=== PATIENT | male | born 1980 | race Caucasian/White ===

== ENCOUNTER 2020-02-06 14:21 | Emergency (ER) | payer MEDICAID, SELFPAY ==
[2020-02-06 14:30] VITALS: BP 164/90; PULSE 85; RESP 20; TEMP 36.9; O2SAT 98
--- NOTE | 2020-02-06 14:34 | ED.GENADULT ---
HPI - General Adult General Chief complaint: Nausea/Vomiting/Diarrhea Stated complaint: vomitting/pain in ribs Time Seen by Provider: 02/06/20 14:41 Source: patient and RN notes reviewed Mode of arrival: ambulatory Limitations: no limitations History of Present Illness HPI narrative: This is a 39 years old male presents to the office for an evaluation of vomiting since last night. Symptoms began shortly after he eats spaghetti with garlic bread; contribute to his reflux. Stated he has been out of his omeprazole for a while and now that his doctor is out of the office he could not get any refill. Last vomiting was 10am this morning. He also reports left rib cage pain secondary to vomiting. Denies chest trauma or injury. He has not been eating anything since this morning except water. Denies sick contact at home. Related Data Home Medications Medication Instructions Recorded Confirmed mirtazapine 45 mg PO HS 02/06/20 02/06/20 paroxetine HCl 40 mg PO QAM 02/06/20 02/06/20 venlafaxine 50 mg PO BID 02/06/20 02/06/20 Allergies Allergy/AdvReac Type Severity Reaction Status Date / Time No Known Allergies Allergy Verified 02/06/20 14:44 Review of Systems Review of Systems: Narrative: CONSTITUTIONAL: Denies fever ENT: Denies congestion. Reports sore throat secondary to vomiting CARDIOVASCULAR: Denies chest pain. RESPIRATORY: Denies dyspnea, cough GASTROINTESTINAL:Reports left upperquadrant pain, vomiting. Denies diarrhea. GENITOURINARY: Denies urinary symptoms SKIN: Denies rash/bruising MUSCULOSKELETAL: Denies acute back pain NEUROLOGIC: Denies lightheaded PMFSH Past Medical History Medical History (Updated 02/06/20 @ 14:51 by SHILA Danielle) Anxiety and depression Sleep disorder Comments At time of signature, I agree with nursing past medical, surgical, social and family history. There is no relevant family history pertinent to the presenting complaint. Exam Narrative: Exam Narrative: GENERAL: This is a well-nourished, well-developed patient, in no apparent distress. CARDIOVASCULAR: Regular rate and rhythm without murmurs, gallops, or rubs. No chest wall tenderness RESPIRATORY: Clear to auscultation. Breath sounds equal bilaterally. No wheezes, rales, or rhonchi. GASTROINTESTINAL: Abdomen soft, non-tender, nondistended. Bowel sounds are active. No hepato-splenomegaly, or palpable masses. No guarding. SKIN: warm, intact with no suspicious lesions or rash, good texture and turgor. NEURO: awake, alert, and oriented to person, place and time. There were no obvious focal neurologic abnormalities. Steady gait Deyanira Coma Scale Eye Opening: Spontaneous 4 Deyanira Coma Scale Motor: Obeys Commands 6 Deyanira Coma Scale Verbal: Oriented 5 Course Vital Signs Vital signs: Vital Signs Temperature 98.4 F 02/06/20 14:30 Pulse Rate 85 02/06/20 14:30 Respiratory Rate 02/06/20 14:30 Blood Pressure 164/90 H 02/06/20 14:30 Pulse Oximetry 98 02/06/20 14:30 Temperature 98.4 F 02/06/20 14:30 Pulse Rate 85 02/06/20 14:30 Respiratory Rate 02/06/20 14:30 Blood Pressure 138/70 02/06/20 14:54 Pulse Oximetry 98 02/06/20 14:30 Medical Decision Making MDM Narrative Medical decision making narrative: Discharge instructions reviewed with patient, as well as provided in writing per nursing staff. The instructions also include specific and strict return/GO TO THE ER as well as f/u information. All questions have been answered, and the patient deny any further questions with discharge and discharge plan. Differential Diagnosis Differential Diagnosis: Gastroenteritis, colitis, food poisoning, reflux Vital Signs Vital Signs: Vital Signs Temperature 98.4 F 02/06/20 14:30 Pulse Rate 85 02/06/20 14:30 Respiratory Rate 02/06/20 14:30 Blood Pressure 164/90 H 02/06/20 14:30 Pulse Oximetry 98 02/06/20 14:30 Temperature 98.4 F 02/06/20 14:30 Pulse Rate 85
[2020-02-06 14:54] VITALS: BP 138/70
== END 2020-02-06 14:54 | disposition home or self-care (01) ==
PROVIDERS: Emergency Provider Nurse Practitioner
DX: K21.9 Gastro-esophageal reflux disease without esophagitis (principal); F41.9 Anxiety disorder, unspecified; F32.9 Major depressive disorder, single episode, unspecified
CPT/HCPCS: 99213; G0463